=== PATIENT | male | born 1965 | race Caucasian/White ===

== ENCOUNTER 2020-07-06 15:08 | Emergency (ER) | payer SELFPAY ==
[~2020-07-06] VITALS: Ht 177.8 cm; Wt 74.8 kg
--- NOTE | 2020-07-06 15:11 | NUR ---
ED Nurse Note: pt BIBA from street s/p GLF. pt reports that he tripped over himself and fell. denies hitting his head, c/o L ankle pain and swelling, pt has abrasions to L elbow and L ankle. pt states he can normally walk but is unable to bear weight now from the pain. pt denies taking any meds for pain [employer]
[2020-07-06] MEDS ORDERED: KEPPRA500 M4 ORAL (15:15)
--- NOTE | 2020-07-06 15:42 | Emergency Room Report ---
History of Present Illness General Chief Complaint: Lower Extremity Injury Source: Patient (Stacie Garcia PA-C) Present Illness HPI 54-year-old male with reportedly no past medical history presents today after falling prior to arrival. He currently states he is having left ankle pain and left elbow pain. Severity is mild, quality is throbbing. Patient denies any modifying factors or other associated signs or symptoms. Pt states he fell while walking and his foot, ankle, and elbow hit the sidewalk. He denies any head in jury. Denies any LOC. Denies any current chest pain or SOB. Tetanus shot unknown. 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 PULMONARY: No SOB, no cough, no wheezing CARDIAC: No chest pain, No palpitations, no leg swelling GI: No abdominal pain, no vomiting, no diarrhea , no melena or BRBPR : No flank pain, no dysuria, no hematuria, no frequency. MUSCULOSKELETAL:+shoulder pain, +left elbow pain, no back pain, no neck pain, no leg pain SKIN: No rash, no itching, no bruising NEUROLOGICAL: No headache, no dizziness, no paresthesia , no focal weakness. 14 point Review of Systems is otherwise negative except per HPI (Stacie Garcia PA-C) Physical Exam Vital Signs Date Time Temp Pulse Resp B/P (MAP) Pulse Ox O2 Delivery O2 Flow Rate FiO2 07/06/20 15:11 99.0 76 16 142/73 (96) 100 Room Air Other Organ Systems Physical exam: GENERAL: Awake, alert, nontoxic, no acute distress Head: Normocephalic, atraumatic Eyes: EOM grossly intact, PERRLA Nose: no deformity Ears: no deformity Oral: moist mucous membranes Neck: supple, no rigidity, no masses Chest: No crepitus.No tenderness or instability. LUNGS: Clear to auscultation. No wheezes, rhonchi or rales. Normal respiratory effort. HEART: Regular rate and rhythm without murmur. 2+ pulses in all four extremities. Abdomen: nondistended MSK: tenderness to palpation on the lateral aspect of the left ankle, and tenderness to palpation on the left elbow with small hematoma present, full ROM to all extremities, Extremities without deformity. Compartments are soft. Head is normocephalic and atraumatic. All joints have full range of motion, without tenderness NEUROLOGIC: GCS 15. Moves all extremities. Motor and sensation intact in all extremities. Normal gait SKIN: superficial abrasion to left elbow and left lateral aspect of ankle, Warm, well perfused. No lacerations. (Stacie Garcia PA-C) Medical Decision Making PA Attestation Dr. Antoine Is my supervising Physician whom patient management has been discussed with. Homeless Attestation I, the treating provider, FRANC Prince, has assessed and agrees that patient is medically stable for discharge to an outpatient disposition. (Stacie Garcia PA-C) Diagnostic Impression: Primary Impression: Contusion of foot, left Qualified Codes: S90.32XA - Contusion of left foot, initial encounter Additional Impressions: Elbow pain, left Ankle pain, left Qualified Codes: M25.572 - Pain in left ankle and joints of left foot Fall (on) (from) other stairs and steps, initial encounter ER Course Pt. presents to the ED c/o left ankle, left foot, and left elbow pain s/p fall Ddx considered but are not limited to musculoskeletal pain, fracture, dislocation, compartment syndrome, arterial occlusion, nerve damage, among oth ers. Vital signs: are WNL, pt. is afebrile H&PE are most consistent with foot contusion ORDERS: Left ankle and left foot x-ray, left elbow x-ray. Tetanus shot, pain medication ED INTERVENTIONS: None required at this time. DISCHARGE: Distally the patient has capillary refill <2 seconds and strong pulses. There is no pallor or pain out of proportion to exam. There is no significant swelling, deformity, or report of significant dislocation that subsequently reduced. No evidence of arterial occlusion or injury. The associated joints have full range of motion without any significant pain or restriction in mobility. No evidence at this time of major ligamentous disruption. Xrays of the ankle, foot and elbow are within normal limits, compartments are soft. Abrasions were wrapped with bacitracin and left ankle was wrapped with KASHMIR bandage. Crutches were provided and the patient was able to walk steadily. The pt has no neurologic deficits. No evidence of fracture, dislocation, foreign body, significant nerve damage, compartment syndrome at this time. However, the patient was informed that occult fractures or foreign bodies are not always apparent on their first visit and understand to follow up with their regular doctor for a reevaluation within the next 2-3 days, to ensure their symptoms completely resolve. At this time pt. is stable for d/c to home. Will provide printed patient care instructions, and any necessary prescriptions. Care plan and follow up instructions have been discussed with the patient prior to discharge. (Stcaie Garcia PA-C) Other X-Ray Diagnostic Results Other X-Ray Diagnostic Results #1: X-Ray ordered: Left foot # of Views/Limited Vs Complete: 3 View Indication: Pain EP Interpretation: Yes PA Xray: Interpretation reviewed, by supervising MD, and agrees with findings. Interpretation: no dislocation, no fractures Impression: No acute disease Electronically Signed by: Stacie Garcia PA-C Other X-Ray Diagnostic Results #2: X-Ray ordered: Left ankle # of Views/Limited Vs Complete: 3 View Indication: Pain EP Interpretation: Yes PA Xray: Interpretation reviewed, by supervising , and agrees with findings. Interpretation: no dislocation, no fractures, other - appearance of soft tissue swelling Impression: No acute disease Electronically Signed by: Stacie Garcia PA-C Other X-Ray Diagnostic Results #3: X-Ray ordered: Left elbow # of Views/Limited Vs Complete: 3 View Indication: Pain EP Interpretation: Yes PA Xray: Interpretation reviewed, by supervising MD, and agrees with findings. Interpretation: no dislocation, no fractures, other - no joint effusion Impression: No acute disease Electronically Signed by: Stacie Garcia PA-C (Stacie Garcia PA-C) Other X-Ray Diagnostic Results #1: Electronically Signed by: P A documentation of Xray reviewed by me and is accurate, Gulshan Antoine MD Other X-Ray Diagnostic Results #2: Electronically Signed by: P A documentation of Xray reviewed by me and is accurate, Gulshan Antoine MD Other X-Ray Diagnostic Results #3: Electronically Signed by: P A documentation of Xray reviewed by me and is accurate, Gulshan Antoine MD (Gulshan Antoine MD) Last Vital Signs Date Time Temp Pulse Resp B/P (MAP) Pulse Ox O2 Delivery O2 Flow Rate FiO2 07/06/20 15:11 99.0 76 16 142/73 (96) 100 Room Air Status: improved (Stacie Garcia PA-C) Disposition: OTH-HOMELESS Condition: Stable Scripts Bacitracin (Bacitracin) 28.4 Gm Oint...g. 1 APPLIC TOPIC THREE TIMES A DAY, #28.4 GM Prov: Saida Adan 07/06/20 Acetaminophen* (TYLENOL EXTRA STRENGTH*) 500 Mg Tablet 500 MG ORAL Q6H, #30 TAB 0 Refills Prov: Saida Adan 07/06/20 Patient Instructions: Foot Contusion Additional Instructions: Take medications as directed. Follow up with a Primary Care Provider in 1-2 days, even if your symptoms have resolved. Return sooner to ED if new symptoms occur, or current symptoms become worse. - Please note that this Emergency Department Report was dictated using Neurolinkanesthetic assistant technology software, occasionally this can lead to phi eous entry secondary to interpretation by the dictation equipment. Stacie Garcia PA-C Jul 06, 2020 15:42 Gulshan Antoine MD Jul 07, 2020 03:19
[2020-07-06] MEDS ORDERED: Tetanus/Diptheria/Pertussis IM ONE (15:45)
--- NOTE | 2020-07-06 16:42 | Diagnostic Imaging Report ---
History: PAIN Exam: XR LEFT ELBOW 3 views Comparison: None available FINDINGS: No fracture, dislocation or joint effusion. The joint spaces appear within limits. IMPRESSION: No fracture, dislocation or joint effusion.
--- NOTE | 2020-07-06 16:45 | Diagnostic Imaging Report ---
History: PAIN Exam: XR LEFT ANKLE 3 views Comparison: None available FINDINGS: No fracture or dislocation. The joint spaces appear within limits. Appearance of soft tissue swelling. IMPRESSION: No fracture or dislocation. Appearance of soft tissue swelling.
--- NOTE | 2020-07-06 16:48 | Diagnostic Imaging Report ---
History: PAIN Exam: XR LEFT FOOT 3 views Comparison: None available FINDINGS: No fracture or dislocation. First metatarsal-phalangeal joint osteoarthrosis. Small enthesophyte formation plantar surface of the calcaneus. IMPRESSION: No fracture or dislocation.
[2020-07-06] MEDS ORDERED: TYLENOL EXTRA500 MG ORAL (17:16)
[2020-07-06] MEDS ORDERED: Bacitracin Oint UD TOPIC ONE (17:16)
[2020-07-06] MEDS ORDERED: BACITRACIN15 GM TOPIC (17:16)
[2020-07-06 17:30] VITALS: BP 142/73
--- NOTE | 2020-07-06 17:30 | NUR ---
ER DISCHARGE NOTE: Patient is cleared to be discharged per ER FRANC Quinones, pt's L ankle was clean and dressed, pt given crutch instruction with demonstration teach back. pt is aox4, on room air, with stable vital signs. pt was given dc and prescription instructions, pt was able to verbalize understanding, pt id band removed without complications. pt is able to ambulate using crutches. pt took all belongings, was provided with a sandwich and several juices and shoes as well as other items of weather appropriate clothing
[2020-07-06] MEDS ORDERED: Bacitracin Oint 15gm Tube TOPIC SCH (18:00)
== END 2020-07-06 17:30 | disposition other institution (70) ==
LOC: EDBD 15:08 → EMR 15:38
DX: S90.32XA Contusion of left foot, initial encounter (principal); M25.572 Pain in left ankle and joints of left foot; M25.522 Pain in left elbow; G40.909 Epilepsy, unspecified, not intractable, without status epilepticus; F17.200 Nicotine dependence, unspecified, uncomplicated; W01.0XXA Fall on same level from slipping, tripping and stumbling without subsequent striking against object, initial encounter; Y93.01 Activity, walking, marching and hiking; Y92.480 Sidewalk as the place of occurrence of the external cause
CPT/HCPCS: 90471; 90715; 99284